=== PATIENT | female | born 1990 | race Two or more races ===

== ENCOUNTER 2024-03-07 22:04 | Inpatient (IN) | payer MEDICAID ==
[~2024-03-07] VITALS: Ht 162.6 cm; Wt 63.5 kg
[2024-03-07 22:30] VITALS: BP 103/73; PULSE 99; RESP 18; TEMP 99.1
[2024-03-07] MEDS ORDERED: PREN-543 PO (23:07)
[2024-03-07] MEDS ORDERED: FERR325E14 PO (23:07)
[2024-03-07] MEDS ORDERED: INSULIN LISPRO SLIDING SCALE 100 UNITS/ML VIAL SUBQ PRN (23:10)
[2024-03-07] MEDS ORDERED: AMPICILLIN 2,000 MG in NACL 0.9% MINI-BAG PLUS 100 ML IV SCH (23:30)
[2024-03-07 23:40] LABS: BASOPHILS % (AUTO) 0.4 % (0.0-2.0); EOSINOPHILS % (AUTO) 0.1 % (0.0-4.0); HEMATOCRIT 29.4 % (36-48); HEMOGLOBIN 10.1 g/dL (12.0-16.0); LYMPHOCYTES % (AUTO) 38.2 % (20.5-51.1); MEAN CORPUSCULAR HEMOGLOBIN 31 pg (27-31); MEAN CORPUSCULAR HGB CONC 34 g/dL (33-37); MEAN CORPUSCULAR VOLUME 91.3 fL (80-94); MONOCYTES # (AUTO) 0.4 K/uL (0.8-1.0); MONOCYTES % (AUTO) 5.4 % (1.7-9.3); NEUTROPHILS # (AUTO) 4.4 K/uL (1.8-7.7); NEUTROPHILS % (AUTO) 55.9 % (42.2-75.2); PLATELET COUNT (AUTO) 166 K/uL (140-450); RED BLOOD CELL COUNT(AUTO) 3.22 MIL/uL (4.20-5.40); RED CELL DISTRIBUTION WIDTH 14.1 % (11.6-13.7); WHITE BLOOD COUNT (AUTO) 7.9 K/uL (4.8-10.8)
[2024-03-07] MEDS: LACTATED RINGERS 1,000 ML IV SCH (23:46)
[2024-03-07 23:53] LABS: INR 0.87 (0.8-1.2); PARTIAL THROMBOPLASTIN TIME 24.3 secs (22-35.6); PROTHROMBIN TIME 9.2 secs (10.8-13.4)
[2024-03-08] LABS: ANION GAP 12.1 (8-16); CALCIUM 8.5 mg/dL (8.5-10.1); CARBON DIOXIDE 25.8 mmol/L (21-32); CREATININE 1.6 mg/dL (0.6-1.3); POTASSIUM 3.9 mmol/L (3.5-5.1); TOTAL BILIRUBIN 0.2 mg/dL (0.0-1.0); TOTAL PROTEIN, SERUM 6.1 g/dL (6.4-8.2)
[2024-03-08] MEDS: AMPICILLIN 2,000 MG VIAL ONE (00:01)
[2024-03-08] MEDS: BETAMETH ACET/BETAMETH NA PH 30 MG/5 ML VIAL IM ONE ×2 (00:45→06:32)
[2024-03-08] MEDS ORDERED: AMPICILLIN 1,000 MG VIAL ONE (03:24)
[2024-03-08] MEDS: AMPICILLIN 1,000 MG in NACL 0.9% MINI-BAG PLUS 50 ML IV SCH (04:01)
[2024-03-08 05:19] VITALS: BP 130/89; PULSE 93; RESP 18
[2024-03-08] MEDS: MORPHINE SULFATE 10 MG/ML VIAL IVP PRN (05:19)
[2024-03-08] MEDS: ONDANSETRON 4 MG/2 ML VIAL IVP PRN (05:20)
[2024-03-08 05:27] LABS: APPEARANCE,URINE CLEAR (CLEAR); BILIRUBIN,URINE 1+ (NEGATIVE); BLOOD, URINE TRACE-I (NEGATIVE); COLOR,URINE YELLOW (YELLOW); LEUKOCYTE ESTERASE ,URINE NEGATIVE (NEGATIVE); NITRITE, URINE NEGATIVE (NEGATIVE); PH,URINE 7.5 (5.0-9.0); PROTEIN,URINE TRACE (NEGATIVE); UGLUCOSE NEGATIVE (NEGATIVE)
[2024-03-08 05:35] LABS: AMPHETAMINE, URINE NEGATIVE ng/ml (NEG <=1000); BARBITURATE, URINE NEGATIVE ng/ml (NEG <=200); BENZODIAZEPINE, URINE NEGATIVE ng/mL (NEG <=200); CANNABINOID, URINE NEGATIVE ng/mL (NEG <=50); COCAINE, URINE NEGATIVE ng/mL (NEG <=300); OPIATE, URINE NEGATIVE ng/mL (NEG <=2000); PHENCYCLIDINE SCREEN,URINE NEGATIVE ng/mL (NEG <=25)
[2024-03-08 05:36] LABS: ICTOTEST POSITIVE (NEGATIVE)
[2024-03-08 05:37] LABS: BACTERIA,URINE 10-30 (MOD) /HPF (None Seen); MUCUS,URINE 1+ /LPF (None Seen); RBC,URINE 0-5 /HPF (0-5); SQUAMOUS EPITHELIAL CELL,UR 0-3 (FEW) /LPF (0-3 (FEW)); WBC,URINE 0-5 /HPF (0-5)
[2024-03-08] MEDS ORDERED: BETAMETH ACET/BETAMETH NA PH 30 MG/5 ML VIAL IM ONE (06:26)
[2024-03-08] MEDS ORDERED: CITRIC ACID/SODIUM CITRATE 30 ML UDC PO SCH (07:00)
[2024-03-08] MEDS ORDERED: KETAMINE 500 MG/5 ML VIAL ONE (09:12)
[2024-03-08] MEDS ORDERED: MIDAZOLAM 2 MG/2 ML VIAL ONE (09:12)
[2024-03-08] MEDS ORDERED: MORPHINE PRES FREE 10 MG/10 ML AMP IV ONE (09:13)
[2024-03-08] MEDS: ceFAZolin 2,000 MG VIAL ONE (09:32)
[2024-03-08] MEDS ORDERED: HYDROmorphone 1 MG/ML AMP IVP PRN (10:00)
[2024-03-08] MEDS ORDERED: ONDANSETRON 4 MG/2 ML VIAL IVP PRN ×2 (10:00→10:05)
[2024-03-08] MEDS ORDERED: NALOXONE 0.4 MG/ML VIAL IVP PRN (10:00)
[2024-03-08] MEDS ORDERED: diphenhydrAMINE 50 MG/ML VIAL IVP PRN (10:05)
[2024-03-08] MEDS ORDERED: BLOOD GLUCOSE MONITORING 1 DEV DEV FS SCH (10:05)
[2024-03-08] MEDS ORDERED: ACETAMINOPHEN 100 ML IV SCH (10:05)
[2024-03-08] MEDS ORDERED: OXYTOCIN 20 UNITS in LACTATED RINGERS 1,000 ML IV SCH (10:05)
[2024-03-08] MEDS ORDERED: OXYTOCIN/0.9 % SODIUM CHLORIDE 500 ML IV ONE (10:11)
[2024-03-08] MEDS: OXYTOCIN/0.9 % SODIUM CHLORIDE 500 ML IV SCH (11:01)
[2024-03-08] MEDS ORDERED: ACETAMINOPHEN 325 MG TAB PO PRN (11:55)
[2024-03-08] MEDS ORDERED: KETOROLAC 30 MG/ML VIAL IVP SCH (12:00)
[2024-03-08] MEDS ORDERED: ACETAMINOPHEN 325 MG TAB PO SCH (12:00)
[2024-03-08] MEDS ORDERED: oxyCODONE/APAP 5/325 MG 1 TAB TAB PO PRN (19:35)
[2024-03-08] MEDS ORDERED: MEASLES, MUMPS, AND RUBELLA 1 VIAL SQVAC ONE (19:35)
[2024-03-08] MEDS ORDERED: METHYLERGONOVINE 0.2 MG/ML AMP IM PRN ×2 (19:35)
[2024-03-09] MEDS: KETOROLAC 30 MG/ML VIAL IVP PRN (04:36)
[2024-03-09 08:09] LABS: HEPATITIS B SURFACE ANTIGEN Negative (Negative)
[2024-03-09 08:33] LABS: BASOPHILS % (AUTO) 0.3 % (0.0-2.0); HEMATOCRIT 32.4 % (36-48); HEMOGLOBIN 10.7 g/dL (12.0-16.0); LYMPHOCYTES # (AUTO) 1.8 K/uL (2.5-16.5); LYMPHOCYTES % (AUTO) 10.4 % (20.5-51.1); MEAN CORPUSCULAR HEMOGLOBIN 31 pg (27-31); MEAN CORPUSCULAR HGB CONC 33 g/dL (33-37); MEAN CORPUSCULAR VOLUME 92.4 fL (80-94); MONOCYTES # (AUTO) 0.5 K/uL (0.8-1.0); MONOCYTES % (AUTO) 3.1 % (1.7-9.3); NEUTROPHILS # (AUTO) 15.2 K/uL (1.8-7.7); NEUTROPHILS % (AUTO) 86.2 % (42.2-75.2); PLATELET COUNT (AUTO) 174 K/uL (140-450); RED BLOOD CELL COUNT(AUTO) 3.51 MIL/uL (4.20-5.40); RED CELL DISTRIBUTION WIDTH 14.1 % (11.6-13.7); WHITE BLOOD COUNT (AUTO) 17.6 K/uL (4.8-10.8)
[2024-03-09] MEDS ORDERED: bisacodyL 10 MG SUPP RC SCH (09:00)
[2024-03-09 13:32] LABS: RUBELLA AB IGG Non-Immune (<5) index (<0.9 - 0.99)
[2024-03-09] MEDS ORDERED: CAMERA MC ONE (19:08)
[2024-03-09] MEDS: MEASLES, MUMPS, AND RUBELLA 1 VIAL SQVAC ONE (22:04)
== END 2024-03-10 15:15 | disposition home or self-care (01) | DRG 540 ==
LOC: MLD 22:04 → OBSVTOIN 22:04 → MFCC 03-08 11:15
PROVIDERS: ADMIT Obstetrics & Gynecology; ATTEND Obstetrics & Gynecology
PROC: 10D00Z1 Extraction of Products of Conception, Low, Open Approach (ICD-10-PCS; principal; 2024-03-09)
DX: O42.913 Preterm premature rupture of membranes, unspecified as to length of time between rupture and onset of labor, third trimester (principal); O32.1XX0 Maternal care for breech presentation, not applicable or unspecified; Z37.0 Single live birth; Z3A.36 36 weeks gestation of pregnancy
CPT/HCPCS: 36415; 76805; 80053; 80305; 81001; 82948; 85025; 85610; 85730; 86592; 86762; 86886; 86900; 86901; 87086; 87340; 87653-90; 90707; 90715; J0290; J0702; J1815; J1885; J2250; J2270; J2405; J2590; Q0092